=== PATIENT | female | born 1975 | race Caucasian/White ===

== ENCOUNTER → 2016-11-02 | Outpatient (CLI) | payer BC ==
--- NOTE | 2016-11-03 10:08 | REP ---
MR LUMBAR SPINE WITHOUT CONTRAST: HISTORY: Back pain. Decreased signal intensity on T2-weighted images is present in the L4-5 and L5-S1 intervertebral discs. The discs are decreased in height. These findings are consistent with disc degeneration. There is no disc bulge or herniation at the L1-2, L2-3 and L5-S1 levels. The nerves exit the neural foramina without compression. A diffuse disc bulge is present at the L3-4 level. There is minimal compression of the thecal sac. The L3 nerves exit the neural foramina without compression. A diffuse disc bulge is present at the L4-5 level. This abuts the thecal sac. The L4 nerves exit the neural foramina without compression. The conus medullaris is normal in appearance terminating at the level of the L1-2 intervertebral disc . A hemangioma is present in the L2 vertebral body. Normal signal intensity is present in the remaining lumbar vertebral bodies. IMPRESSION: 1. Diffuse disc bulge at the L3-4 level with minimal thecal sac compression. 2. Diffuse disc bulge at the L4-5 level. This abuts the thecal sac. Signed by Otto Palacios MD 11/03/2016 10:11 A
== END ==
LOC: M RAD 18:29
PROVIDERS: ATTEND Physician Assistant
DX: M54.5 Low back pain (principal); M51.06 Intervertebral disc disorders with myelopathy, lumbar region

== ENCOUNTER → 2017-04-01 | Outpatient (REF) | payer BC | LOC: M LAB REF 17:42 | PROVIDERS: ATTEND Physician Assistant | DX: J02.9 Acute pharyngitis, unspecified (principal) ==

== ENCOUNTER 2017-09-13 16:26 | Emergency (ER) | payer BC ==
[2017-09-13] MEDS: ALBUTEROL SULFATE 2.5 MG/0.5 ML INH NEB SOLN INH (17:02)
[2017-09-13] MEDS: IPRATROPIUM 0.5MG/ALBUTEROL 2.5MG INH SOL UD 3ML (DUONEB)(J7620) NEB (17:02)
[2017-09-13 17:49] LABS: BASO % 0.4 % (0.0-1.0); HEMATOCRIT 41.6 % (36.0-47.0); HEMOGLOBIN 14.1 g/dl (12.0-16.0); IMMATURE GRANULOCYTE # 0.1 10^3/uL (0-0); IMMATURE GRANULOCYTE % 0.7 % (0-0); LYMPH # 1.7 10^3/uL (1.5-4.5); LYMPH % 15.9 % (24.0-44.0); MEAN CORPUSCULAR HEMOGLOBIN 30.5 pg (27.0-33.0); MEAN CORPUSCULAR HGB CONC 33.9 g/dl (32.0-36.5); MONO # 0.5 10^3/uL (0.0-0.8); NEUTROPHILS # 8.3 10^3/uL (1.8-7.7); PLATELET COUNT, AUTOMATED 290 10^3/uL (150-450); RED BLOOD COUNT 4.62 10^6/uL (4.00-5.40); RED CELL DISTRIBUTION WIDTH 13.8 % (11.5-14.5); WHITE BLOOD COUNT 10.7 10^3/uL (4.0-10.0)
[2017-09-13] MEDS: NS 1,000 ML IV ×3 (18:08→19:00)
[2017-09-13] MEDS: methylPREDNISolone INJ 125 MG/2 ML VIAL (J2930) IV (18:08)
[2017-09-13 18:23] LABS: ALBUMIN 3.7 GM/DL (3.2-5.2); ALBUMIN/GLOBULIN RATIO 0.88 (1.00-1.93); ALKALINE PHOSPHATASE 66 U/L (45-117); ALT/SGPT 21 U/L (12-78); AST/SGOT 14 U/L (7-37); BILIRUBIN,DIRECT 0.1 MG/DL (0.0-0.2); BILIRUBIN,TOTAL 0.6 MG/DL (0.2-1.0); TOTAL PROTEIN 7.9 GM/DL (6.4-8.2)
[2017-09-13 18:25] LABS: ANION GAP 12 MEQ/L (8-16); BLOOD UREA NITROGEN 16 MG/DL (7-18); CALCIUM LEVEL 8.8 MG/DL (8.5-10.1); CARBON DIOXIDE LEVEL 22 MEQ/L (21-32); CHLORIDE LEVEL 104 MEQ/L (98-107); CPK CREATINE PHOSPHOKINASE 46 U/L (26-192); CREATININE FOR GFR 1.11 MG/DL (0.55-1.02); GLOMERULAR FILTRATION RATE 57.1 (>58); GLUCOSE, FASTING 155 MG/DL (70-105); MB/CK RELATIVE INDEX 2.17 (< OR =4); POTASSIUM SERUM 3.5 MEQ/L (3.5-5.1); SODIUM LEVEL 138 MEQ/L (136-145); TROPONIN I < 0.02 NG/ML (< 0.10)
[2017-09-13 18:25] LABS: LACTIC ACID SEPSIS PROTOCOL 3.1 MMOL/L (0.4-2.0)
== END 2017-09-13 21:06 | disposition home or self-care (01) ==
LOC: M ED 16:26
DX: J18.1 Lobar pneumonia, unspecified organism (principal); Z91.048 Other nonmedicinal substance allergy status; Z79.2 Long term (current) use of antibiotics; Z79.899 Other long term (current) drug therapy
CPT/HCPCS: J2930

== ENCOUNTER → 2018-09-06 | Outpatient (CLI) | payer BC ==
[~2018-09-06] MED LIST: AVEL1TAB3 PO; MEDR4PAK PO
[2018-09-06 12:05] LABS: BASO # 0.1 10^3/uL (0.0-0.2); BASO % 0.8 % (0.0-1.0); EOS # 0.2 10^3/uL (0.0-0.50); EOS % 3.6 % (0.0-3.0); HEMATOCRIT 42.9 % (36.0-47.0); HEMOGLOBIN 14.4 g/dl (12.0-15.5); LYMPH # 2.1 10^3/uL (1.5-4.5); LYMPH % 31.9 % (24.0-44.0); MEAN CORPUSCULAR HEMOGLOBIN 31.2 pg (27.0-33.0); MEAN CORPUSCULAR HGB CONC 33.6 g/dl (32.0-36.5); MEAN CORPUSCULAR VOLUME 93.1 fl (80.0-96.0); MONO # 0.6 10^3/uL (0.0-0.8); NEUTROPHILS # 3.5 10^3/uL (1.8-7.7); NEUTROPHILS % 54.4 % (36.0-66.0); PLATELET COUNT, AUTOMATED 359 10^3/uL (150-450); RED BLOOD COUNT 4.61 10^6/uL (4.00-5.40); WHITE BLOOD COUNT 6.5 10^3/uL (4.0-10.0)
[2018-09-06 12:37] LABS: BLOOD UREA NITROGEN 20 MG/DL (7-18); CALCIUM LEVEL 8.9 MG/DL (8.5-10.1); CARBON DIOXIDE LEVEL 28 MEQ/L (21-32); CHLORIDE LEVEL 105 MEQ/L (98-107); CHOLESTEROL LEVEL 255 MG/DL (<200); CHOLESTEROL RISK RATIO 2.802 (<5); CREATININE FOR GFR 0.96 MG/DL (0.55-1.30); GLOMERULAR FILTRATION RATE > 60.0 (>58); GLUCOSE, FASTING 78 MG/DL (70-100); HDL CHOLESTEROL 91 MG/DL (>40); LDL CHOLESTEROL 143 MG/DL (<100); NON-HDL-C 164 MG/DL; POTASSIUM SERUM 4.5 MEQ/L (3.5-5.1); SODIUM LEVEL 139 MEQ/L (136-145); TRIGLYCERIDES LEVEL 106 MG/DL (<150)
--- NOTE | 2018-09-06 12:44 | REP ---
LEFT FOOT, FOUR VIEWS: HISTORY: Plantar fibromatosis. There is no acute fracture or dislocation. The joint spaces are normal in appearance. A small ossified density is present in the soft tissue lateral to the distal interphalangeal joint of the 4th digit. IMPRESSION: There is no acute fracture or dislocation. Electronically Signed by Otto Palacios MD 09/06/2018 12:50 P
--- NOTE | 2018-09-06 12:46 | REP ---
LEFT ANKLE, TWO VIEWS: HISTORY: Plantar fibromatosis. There is no acute fracture or dislocation. The joint space is normal in appearance. IMPRESSION: There is no acute fracture or dislocation. Electronically Signed by Otto Palacios MD 09/06/2018 12:50 P
== END ==
LOC: M LAB 11:28
PROVIDERS: ATTEND Physician Assistant Medical
DX: E78.5 Hyperlipidemia, unspecified (principal); M72.2 Plantar fascial fibromatosis

== ENCOUNTER → 2019-06-04 | Outpatient (CLI) | payer BC ==
--- NOTE | 2019-06-04 17:16 | REP ---
Mandible series six views: No evidence of mandibular fracture or dislocation is identified on the views presented. However, some of the views are underpenetrated. If symptoms persist or worsen, consider CT for further evaluation. Electronically Signed by Henry Oakley MD 06/04/2019 05:07 P
== END ==
LOC: M WUC 15:32
PROVIDERS: ATTEND Physician Assistant
DX: R68.84 Jaw pain (principal)

== ENCOUNTER → 2019-07-03 | Outpatient (REF) | payer BC ==
[2019-07-03 17:38] LABS: AMYLASE 62 U/L (25-115); LIPASE 109 U/L (73-393)
== END ==
LOC: M LAB REF 17:21
PROVIDERS: ATTEND Family Medicine
DX: R10.9 Unspecified abdominal pain (principal)

== ENCOUNTER 2019-10-15 09:05 | Day surgery (SDC) | payer BC ==
[~2019-10-15] VITALS: Ht 175.3 cm; Wt 77.7 kg
[~2019-10-15 09:05] MED LIST changes: +BUPR150T5 PO; +GLUC500C37 PO; +HM V5000 PO; +JUNETAB2 PO; +LEXA1TAB PO; +MAGN100T PO; +NS 1,000 ML IV ONE; +PROAAER10 INH; +VITA100T90 PO; +VITAD1000T PO
[2019-10-15] MEDS ORDERED: propofoL 200 MG/20 ML VIAL As Ordered ONE ×4 (09:19→11:20)
[2019-10-15] MEDS ORDERED: LIDOCAINE 2% INJ 100 MG/5 ML SDV (FOR ANES.) As Ordered ONE (09:19)
--- NOTE | 2019-10-15 11:29 | ROOR ---
Patient Name: Kate Martínez Procedure Date: 10/15/2019 11:04 AM Date of : 1975 Age: 44 Room: [facility] Gender: Female Note Status: Finalized Procedure: Total Colonoscopy to Cecum Indications: Change in bowel habits, Constipation Providers: Gerard Laws MD Referring MD: Shaun Severino MD Requesting Provider: Medicines: Monitored Anesthesia Care Complications: No immediate complications. Procedure: Pre-Anesthesia Assessment: - The heart rate, respiratory rate, oxygen saturations, blood pressure, adequacy of pulmonary ventilation, and response to care were monitored throughout the procedure. The Colonoscope was introduced through the anus and advanced to the cecum, identified by appendiceal orifice and ileocecal valve. The colonoscopy was performed without difficulty. The patient tolerated the procedure well. The quality of the bowel preparation was good. Findings: The perianal and digital rectal examinations were normal. No other significant abnormalities were identified in a careful examination of the remainder of the colon. The exam was otherwise without abnormality on direct and retroflexion views. Impression: - The examination was otherwise normal on direct and retroflexion views. - No specimens collected. - The exam was otherwise normal to the cecum. Recommendation: - Patient has a contact number available for emergencies. The signs and symptoms of potential delayed complications were discussed with the patient. Return to normal activities tomorrow. Written discharge instructions were provided to the patient. - High fiber diet. - Discharge patient to home. - Continue present medications. - Repeat colonoscopy in 10 years for screening purposes. - Return to referring physician. - The findings and recommendations were discussed with the patient's family. Gerard Laws MD Gerard Laws MD 10/15/2019 11:29:30 AM Electronically signed by Gerard Laws MD Number of Addenda: 0 Note Initiated On: 10/15/2019 11:04 AM Estimated Blood Loss: Estimated blood loss: none.
[2019-10-15 11:50] VITALS: BP 119/68
== END 2019-10-15 12:12 | disposition home or self-care (01) ==
LOC: M OPP 09:05
PROVIDERS: ATTEND Internal Medicine Gastroenterology
DX: R19.4 Change in bowel habit (principal); R10.9 Unspecified abdominal pain; K92.1 Melena; K58.1 Irritable bowel syndrome with constipation; R14.0 Abdominal distension (gaseous); F32.9 Major depressive disorder, single episode, unspecified; J45.990 Exercise induced bronchospasm; Z79.899 Other long term (current) drug therapy

== ENCOUNTER → 2021-04-20 | Outpatient (CLI) | payer BC ==
[~2021-04-20] MED LIST changes: +D31000TA2 PO; -NS 1,000 ML IV ONE; -VITAD1000T PO
[2021-04-20 18:14] LABS: HEMATOCRIT 42.7 % (36.0-47.0); HEMOGLOBIN 14.4 g/dl (12.0-15.5); MEAN CORPUSCULAR HGB CONC 33.7 g/dl (32.0-36.5); PLATELET COUNT, AUTOMATED 313 10^3/uL (150-450); RED BLOOD COUNT 4.64 10^6/uL (4.00-5.40)
[2021-04-20 18:44] LABS: ALBUMIN 3.3 GM/DL (3.2-5.2); BILIRUBIN,TOTAL 0.7 MG/DL (0.2-1.0); CALCIUM LEVEL 8.6 MG/DL (8.5-10.1); CREATININE FOR GFR 1.12 MG/DL (0.55-1.30); GLOMERULAR FILTRATION RATE 55.8 (>58); TOTAL PROTEIN 6.5 GM/DL (6.4-8.2)
[2021-04-20 19:02] LABS: ATYPICAL LYMPH 3 % (0-5); EOSINOPHILS 4 % (0-3); LYMPHOCYTES 38 % (16-44); MONOCYTES 3 % (0-5); NEUTROPHILS 52 % (28-66); PLATELET ESTIMATE NORMAL (NORMAL)
== END ==
LOC: M LAB 17:24
PROVIDERS: ATTEND Physician Assistant
DX: R10.9 Unspecified abdominal pain (principal)

== ENCOUNTER → 2021-04-21 | Outpatient (CLI) | payer BC ==
[~2021-04-21] MED LIST changes: +KETOROLAC 60MG 2ML VIAL As Ordered ONE; +MORPHINE PRES-FREE INJ 10 MG/10 ML VIAL (J2274) As Ordered ONE; +ONDANSETRON 4MG/2ML VIAL As Ordered ONE; +OXYTOCIN INJ 10 UNITS/ML VIAL (J2590) As Ordered ONE; +dexameTHASONE 4 MG/ML 1ML VIAL (J1100 PER 1MG) As Ordered ONE; +fentaNYL 100 MCG/2 ML INJECTION (J3010) As Ordered ONE
--- NOTE | 2021-04-21 10:09 | REP ---
INDICATION: RUQ ABD PAIN COMPARISON: None. TECHNIQUE: Real time welch scale ultrasound examination using curved array transducer. FINDINGS: Liver demonstrates multiple primarily subcentimeter anechoic/hypoechoic lesions suggesting cysts. The largest of which measure up to 1.3 cm in the right hepatic lobe and 1.2 cm in the left hepatic lobe. Pancreas is incompletely evaluated due to interposed bowel gas. The gallbladder is normal and without gallstones, wall thickening, or pericholecystic fluid. No biliary ductal dilatation is appreciated and the common bile duct measures 2.9 mm diameter. Right kidney is normal in reniform shape without hydronephrosis and measures 11.2 x 4.9 x 6.7 cm. No ascites in the visualized right upper quadrant. IMPRESSION: 1. Multiple hepatic lesions likely representing cysts measuring up to 1.2 and 1.3 cm. No prior examination available for comparison. If necessary consider pre and postcontrast CT of the abdomen for confirmation. 2. Otherwise normal right upper quadrant ultrasound. <Electronically signed by Peter Villegas > 04/21/21 [id number]
== END ==
LOC: M RAD 09:27
PROVIDERS: ATTEND Physician Assistant
DX: R10.9 Unspecified abdominal pain (principal)

== ENCOUNTER 2021-12-16 07:48 | Emergency (ER) | payer BC ==
[~2021-12-16] VITALS: Ht 175.3 cm; Wt 79.5 kg
[~2021-12-16 07:48] MED LIST changes: +BUPR-71 PO; -BUPR150T5 PO; -D31000TA2 PO; -KETOROLAC 60MG 2ML VIAL As Ordered ONE; -MORPHINE PRES-FREE INJ 10 MG/10 ML VIAL (J2274) As Ordered ONE; -ONDANSETRON 4MG/2ML VIAL As Ordered ONE; -OXYTOCIN INJ 10 UNITS/ML VIAL (J2590) As Ordered ONE; +VITA100093 PO; -dexameTHASONE 4 MG/ML 1ML VIAL (J1100 PER 1MG) As Ordered ONE; -fentaNYL 100 MCG/2 ML INJECTION (J3010) As Ordered ONE
[2021-12-16] MEDS ORDERED: VITA-243 PO (08:01)
[2021-12-16] MEDS ORDERED: NORE1TAB (08:01)
[2021-12-16] MEDS ORDERED: methylPREDNISolone 125MG 2ML VIAL IV ONE (08:10)
[2021-12-16] MEDS ORDERED: IPRATROPIUM 0.5MG/ALBUTEROL 2.5MG INH SOL UD 3ML (DUONEB) NEB ONE (08:10)
[2021-12-16] MEDS ORDERED: PRED20TA PO (08:21)
[2021-12-16] MEDS ORDERED: ALBU8.5H INH (08:22)
[2021-12-16] MEDS ORDERED: PROV108A INH (08:23)
[2021-12-16] MEDS ORDERED: BENZ200C70 PO (08:25)
[2021-12-16 09:00] VITALS: BP 165/87
== END 2021-12-16 09:09 | disposition home or self-care (01) ==
LOC: M ED 07:48
DX: J45.998 Other asthma (principal); J20.9 Acute bronchitis, unspecified; Z79.899 Other long term (current) drug therapy; Z79.3 Long term (current) use of hormonal contraceptives
CPT/HCPCS: 71046; 87798; 96374; 99284; J2930

== ENCOUNTER → 2021-12-28 | Outpatient (CLI) | payer BC ==
[~2021-12-28] MED LIST changes: +ALBU8.5H INH; +BENZ200C70 PO; +NORE1TAB; +PRED20TA PO; +PROV108A INH; +VITA-243 PO
[2021-12-28 13:39] LABS: BASO # 0.1 10^3/uL (0.0-0.2); BASO % 0.7 % (0.0-1.0); EOS # 0.2 10^3/uL (0.0-0.5); EOS % 2.9 % (0.0-3.0); HEMATOCRIT 43.5 % (36.0-47.0); HEMOGLOBIN 14.6 g/dl (12.0-15.5); LYMPH # 2.7 10^3/uL (1.5-5.0); LYMPH % 33.4 % (24.0-44.0); MEAN CORPUSCULAR HEMOGLOBIN 30.5 pg (27.0-33.0); MEAN CORPUSCULAR HGB CONC 33.6 g/dl (32.0-36.5); MONO # 0.7 10^3/uL (0.0-0.8); MONO % 8.1 % (2.0-8.0); NEUTROPHILS # 4.4 10^3/uL (1.5-8.5); NEUTROPHILS % 54.5 % (36.0-66.0); PLATELET COUNT, AUTOMATED 416 10^3/uL (150-450); RED BLOOD COUNT 4.78 10^6/uL (4.00-5.40); WHITE BLOOD COUNT 8.1 10^3/uL (4.0-10.0)
[2021-12-28 13:43] LABS: ALBUMIN 3.2 GM/DL (3.2-5.2); ALT/SGPT 35 U/L (12-78); BILIRUBIN,TOTAL 0.6 MG/DL (0.2-1.0); BLOOD UREA NITROGEN 20 MG/DL (7-18); CALCIUM LEVEL 8.7 MG/DL (8.5-10.1); CARBON DIOXIDE LEVEL 31 MEQ/L (21-32); CHLORIDE LEVEL 105 MEQ/L (98-107); CREATININE FOR GFR 1.03 MG/DL (0.55-1.30); GLOMERULAR FILTRATION RATE > 60.0 (>58); GLUCOSE, FASTING 91 MG/DL (70-100); SODIUM LEVEL 139 MEQ/L (136-145); TOTAL PROTEIN 6.4 GM/DL (6.4-8.2)
== END ==
LOC: M WUC 11:47
PROVIDERS: ATTEND Physician Assistant
DX: R06.02 Shortness of breath (principal)

== ENCOUNTER → 2022-07-22 | Outpatient (CLI) | payer BC ==
[~2022-07-22] MED LIST changes: +ALBU6.7H6 INH; -PROV108A INH
== END ==
LOC: M RAD 09:29
PROVIDERS: ATTEND Student in an Organized Health Care Education/Training Program
DX: M25.532 Pain in left wrist (principal)

== ENCOUNTER → 2025-08-11 | Outpatient (REF) | payer BC ==
[2025-08-11 13:17] LABS: LUTEINIZING HORMONE 6.5 mIU/ML
== END ==
LOC: M LAB REF 12:39
PROVIDERS: ATTEND Family Medicine
DX: Z79.3 Long term (current) use of hormonal contraceptives (principal)